=== PATIENT | female | born 1985 | race Caucasian/White ===

== ENCOUNTER → 2016-06-02 | Outpatient (CLI) | payer OTHER ==
--- NOTE | 2016-06-02 23:08 | DI ---
MRI LUMBAR SPINE SCAN WITHOUT IV CONTRAST, 06/02/2016 1:00 PM: Clinical History: Bilateral lower extremity weakness. Previous Exam: None. Technique: Sagittal and axial T2 weighted; sagittal T1 weighted and T2 STIR; and axial PD. The vertebral bodies are of normal height and size. There is disc space narrowing at L4-5 and the L4- 5 and L5-S1 disc spaces show desiccation change. The remaining lumbar disc spaces are of normal heigh t and signal pattern. The cord terminates at T12 and the conus medullaris is normal. The disc spaces from T11-12 through L3-4 are normal. L4-5 has a circumferentially bulging but not herniated disc with out canal or neural foraminal stenosis. L5-S1 also has a circumferentially bulging but not herniated disc without canal or neural foraminal stenosis. There is a disc annulus tear located just to the rig ht of midline. Readin. There are bulging but not herniated discs without canal or neural foraminal stenosis at L4-5 and L5-S1. There is a disc annulus tear at to the right of midline at the L5-S1 disc. 2. The disc spaces from T11-12 through L3-4 are normal.
== END ==
LOC: MRI 12:43
PROVIDERS: ATTEND Student in an Organized Health Care Education/Training Program
DX: R53.1 Weakness (principal); M47.816 Spondylosis without myelopathy or radiculopathy, lumbar region; M51.37 Other intervertebral disc degeneration, lumbosacral region
CPT/HCPCS: 72148

== ENCOUNTER → 2016-07-06 | Outpatient (CLI) | payer OTHER ==
--- NOTE | 2016-07-06 16:37 | DI ---
MRI THORACIC SPINE W/O CN,07/06/2016 10:12 AM: Clinical History: Upper motor neuron lesion Previous Exam: None at this facility. Findings: Multiplanar MR images are obtained through the thoracic spine without contrast. Bony alignment is anatomic. No fractures are seen. Marrow signal is preserved. The spinal cord descen ds normally with normal course, caliber and signal characteristics. Visualized portions of the kidneys are unremarkable. The liver and spleen are unremarkable. There is no significant disc desiccation. There are no disc bulges and there is no significant centra l canal nor neural foraminal narrowing. Impression: Normal MRI thoracic spine.
== END ==
LOC: MRI 10:05
PROVIDERS: ATTEND Physician Assistant
DX: G58.8 Other specified mononeuropathies (principal)
CPT/HCPCS: 72146

== ENCOUNTER → 2016-07-07 | Outpatient (CLI) | payer OTHER ==
--- NOTE | 2016-07-07 19:26 | DI ---
MRI CERVICAL SPINE W/O CN,07/07/2016 10:37 AM: Clinical History: Hyperreflexia. Previous Exam: MRI brain performed June 23, 2016 Findings: Multiplanar MR images are obtained through the cervical spine without contrast, and demonstrate anato unique alignment without fractures. Vertebral body height is preserved. The spinal cord descends normall y with normal course, caliber and signal characteristics. There is no evidence of Chiari malformation. The prevertebral soft tissues are unremarkable. Individual intervertebral disc spaces: C2/C3: No significant stenosis. C3/4: No significant stenosis. C4/5: No significant stenosis. C5/6: There is a small annular fissure and broad-based disc bulge without significant stenosis. C6/7: No significant stenosis. C7/T1: No significant stenosis. Impression: No evidence of spinal cord lesion. No evidence of central canal nor neural foraminal narrowing.
== END ==
LOC: MRI 10:23
PROVIDERS: ATTEND Physician Assistant
DX: R29.2 Abnormal reflex (principal)
CPT/HCPCS: 72141